=== PATIENT | female | born 2000 | race Caucasian/White ===

== ENCOUNTER 2025-08-16 18:19 | Emergency (ER) | payer OTHER, SELFPAY | END 2025-08-16 19:55 | disposition home or self-care (01) | LOC: EDSEX 18:19 → ERS 18:19 | DX: S83.91XA Sprain of unspecified site of right knee, initial encounter (principal); V49.59XA Passenger injured in collision with other motor vehicles in traffic accident, initial encounter | CPT/HCPCS: 99283 ==